=== PATIENT | female | born 1995 | race Caucasian/White ===

== ENCOUNTER 2018-09-04 15:13 | Emergency (ER) | payer SELFPAY ==
[2018-09-04 15:27] VITALS: BP 124/78; PULSE 90; TEMP 98.2; BMI 22.4
--- NOTE | 2018-09-04 15:33 | PDOC ---
Rapid Medical Evaluation Chief Complaint: Pain, Acute Time Seen by Provider: 09/04/18 15:22 Medical Evaluation: Allergies Allergy/AdvReac Type Severity Reaction Status Date / Time No Known Allergies Allergy Verified 11/14/13 14:43 09/04/18 15:25 I have performed a brief in-person evaluation of this patient. The patient presents with a chief complaint of: multiple abrasion to lateral aspect of left shoulder, anterior left knee with bleeding and left hand and face s/p falling off a scateboard yesterday. Report hitting her head yesterday but denies LOC. report mild headache and nausea Pertinent physical exam findings: mulitple abrasions to left shoulder , UE, face and left anterior knee with active bleeding to 2cm laceration to left anterior knee. moderate TTP to left wrist I have ordered the following: LT wrist x-rays, Uhcg The patient will proceed to the ED for further evaluation. Discharge Disposition - Diagnosis Fall Qualifiers: Encounter type: initial encounter Qualified Code(s): W19.XXXA - Unspecified fall, initial encounter - Discharge Dispostion Condition at time of disposition: Stable - Referrals - Patient Instructions - Post Discharge Activity
--- NOTE | 2018-09-04 17:29 | PDOC ---
History of Present Illness - General Chief Complaint: Pain, Acute Stated Complaint: LT KNEE INJURY , HEAD INJURY Time Seen by Provider: 09/04/18 15:22 History Source: Patient Exam Limitations: No Limitations (L knee and wrist pain s/p fall yesterday while skate boarding) - History of Present Illness Associated Symptoms: denies: chest pain, cough, fever/chills, headaches, nausea/ vomiting, shortness of breath Past History - Travel Traveled outside of the country in the last 30 days: No Close contact w/someone who was outside of country & ill: No - Past Medical History Allergies/Adverse Reactions: Allergies Allergy/AdvReac Type Severity Reaction Status Date / Time No Known Allergies Allergy Verified 11/14/13 14:43 Home Medications: Ambulatory Orders Omeprazole [Prilosec] 20 mg PO DAILY 11/14/13 Bacitracin - [Bacitracin Topical Ointment -] 1 applic TP BID 7 Days #30 grams Ibuprofen 600 mg PO ACDIN 7 Days #30 tablet 09/04/18 Asthma: Yes COPD: No - Surgical History Cholecystectomy: No Lung Surgery: No - Immunization History Immunization Up to Date: No - Suicide/Smoking/Psychosocial Hx Smoking History: Never smoked Have you smoked in the past 12 months: No Information on smoking cessation initiated: No Hx Alcohol Use: No Drug/Substance Use Hx: No Substance Use Type: None Review of Systems - Review of Systems Constitutional: No: Chills, Fever HEENTM: No: Double Vision Cardiac (ROS): No: Chest Pain, Lightheadedness, Palpitations Musculoskeletal: Yes: Joint Pain (L knee and wrist pain). No: Back Pain, Joint Swelling, Muscle Pain, Muscle Weakness, Neck Pain Neurological: No: Headache, Dizziness *Physical Exam - Vital Signs Last Vital Signs Temp Pulse Resp BP Pulse Ox 98.2 F 90 18 124/78 98 09/04/18 15:23 09/04/18 15:23 09/04/18 15:23 09/04/18 15:23 09/04/18 15:23 - Physical Exam General Appearance: Yes: Nourished HEENT: positive: EOMI, MARCO Respiratory/Chest: positive: Lungs Clear, Normal Breath Sounds Cardiovascular: positive: Regular Rhythm, Regular Rate, S1, S2 Extremity: positive: Normal Capillary Refill, Normal Range of Motion, Tender (L knee: + abrasion in anterior knee, FROM ), Other (L shoulder: FROM) Integumentary: positive: Other (abrasiion in L wrist--radial aspect and lateral L shoulder) 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 she has a headache initially when it occurred but now resolved sustained abrasion to L knee and shoulder unsure of last tetanus on exam: +abrasion to L knee and shoulder tetanus updated wound dressed xray negative for acute fx or dislocation *DC/Admit/Observation/Transfer Diagnosis at time of Disposition: Abrasion Fall Qualifiers: Encounter type: initial encounter Qualified Code(s): W19.XXXA - Unspecified fall, initial encounter Knee pain, left Qualifiers: Chronicity: acute Qualified Code(s): M25.562 - Pain in left knee - Discharge Dispostion Disposition: HOME Condition at time of disposition: Stable - Prescriptions Prescriptions: Bacitracin - [Bacitracin Topical Ointment -] 1 applic TP BID 7 Days #30 grams Ibuprofen 600 mg PO ACDIN 7 Days #30 tablet - Referrals Referrals: Dilip Rocha MD [Staff Physician] - Rosales Lee MD [Staff Physician] - - Patient Instructions Additional Instructions: your knee and wrist xrays was negative for acute fracture and dislocation please take motrin for pain Your tetanus was updated today follow up with orthopedic if pain persist more than 2 weeks for re-evaluation Return to the ER If worsening symptoms occurs - Post Discharge Activity
[2018-09-04] MEDS ORDERED: DIPHTH,PERTUSS(ACELL),TET 0.5 ML DISP.SYRIN IM ONE ×2 (18:06→18:08)
[2018-09-04] MEDS ORDERED: BACITRACIN 15 GM TUBE TOPICAL OINTMENT ONE (18:16)
== END 2018-09-04 18:15 | disposition home or self-care (01) ==
LOC: JERFT 15:13
PROC: 3E0234Z Introduction of Serum, Toxoid and Vaccine into Muscle, Percutaneous Approach (ICD-10-PCS; principal; 2018-09-04)
DX: S09.8XXA Other specified injuries of head, initial encounter (principal); S80.212A Abrasion, left knee, initial encounter; S40.212A Abrasion of left shoulder, initial encounter; M25.532 Pain in left wrist; V00.131A Fall from skateboard, initial encounter; Y92.488 Other paved roadways as the place of occurrence of the external cause; Y93.51 Activity, roller skating (inline) and skateboarding; Y99.8 Other external cause status
CPT/HCPCS: 73110-TC-LT-FY; 73130-TC-LT-FY; 73562-TC-LT-FY; 84703; 90715; 99282-25